=== PATIENT | male | born 1985 | race Caucasian/White ===

== ENCOUNTER 2017-01-02 19:09 | Emergency (ER) | payer OTHER ==
[~2017-01-02] VITALS: Ht 152.4 cm; Wt 70.5 kg
[~2017-01-02 19:09] MED LIST: BUTALB-APAP-CA1 EACH; DIVALPROEX SOD500 M1 PO; FIORICET,ESG1 TABLET PO; KEPPRA750 MG PO; NAPROSYN500 MG PO; XANAX0.5 MG
[2017-01-02] MEDS ORDERED: VIMPAT PO (21:47)
[2017-01-02] MEDS ORDERED: FLEXERIL10 MG PO (23:03)
[2017-01-02 23:04] VITALS: BP 114/77
== END 2017-01-02 23:06 | disposition home or self-care (01) ==
LOC: EME 19:09
DX: T85.840A Pain due to nervous system prosthetic devices, implants and grafts, initial encounter (principal); M54.2 Cervicalgia; Z98.2 Presence of cerebrospinal fluid drainage device; Z88.8 Allergy status to other drugs, medicaments and biological substances; F17.200 Nicotine dependence, unspecified, uncomplicated; G40.909 Epilepsy, unspecified, not intractable, without status epilepticus
CPT/HCPCS: 70250; 70450; 71010; 72040; 74000; 80048; 84484; 85027; 99281; 99284